=== PATIENT | male | born 1965 | race Caucasian/White ===

== ENCOUNTER 2023-03-26 07:58 | Day surgery (SDC) | payer BC ==
[2023-03-25 08:57] VITALS: BMI 28.7
[2023-03-26] MEDS: LACTATED RINGERS 1,000 ML IV SCH ×2 (08:04→09:15)
[2023-03-26 08:26] VITALS: TEMP 96.9
[2023-03-26] MEDS ORDERED: PROPOFOL 10 MG/ML 20 ML VIAL IV ONE (09:16)
--- NOTE | 2023-03-26 09:37 | P.PCN ---
Date of Procedure: 03/26/23 Procedure(s) Performed: BRIEF HISTORY: Patient is a 57-year-old pleasant white male scheduled for an elective colonoscopy as a part of screening for colon cancer. His father was diagnosed with colon cancer at age 80. PROCEDURE PERFORMED: Colonoscopy with snare polypectomy. PREOPERATIVE DIAGNOSIS: Screening for colon cancer and family history of colon cancer. IV sedation per Anesthesia. PROCEDURE: After informed consent was obtained, the patient, was brought into the endoscopy unit. IV sedation was administered by Anesthesia under continuous monitoring. Digital rectal examination was normal. Initially the Olympus CF-160 flexible video colonoscope was then inserted in the rectum, gradually advanced into the cecum without any difficulty. Careful examination was performed as the scope was gradually being withdrawn. Ileocecal valve and the appendiceal orifice were visualized and appeared normal. Prep was excellent. Mucosa of the cecum, ascending colon, appeared normal. In the transverse colon there was a 5 mm polyp that was removed by cholecystectomy. Scattered left sided diverticulosis seen. Rest of the transverse colon, descending colon, sigmoid colon, and rectum appeared normal. Retroflexion was performed in the rectum and no lesions were seen. The patient tolerated the procedure well. IMPRESSION: 5 mm transverse colon polyp status post cold snare polypectomy Scattered sigmoid diverticulosis RECOMMENDATIONS: Findings of this examination were discussed with the patient well as his family. He was advised to follow with the biopsy results. Recommend repeat screening colonoscopy in 5 years because of the family history of colon cancer..
[2023-03-26 09:52] VITALS: RESP 16
[2023-03-26 10:21] VITALS: BP 115/72; PULSE 50
== END 2023-03-26 10:37 | disposition home or self-care (01) ==
LOC: ORWHC2ENDO 07:58
PROVIDERS: ATTEND Internal Medicine Gastroenterology
DX: Z12.11 Encounter for screening for malignant neoplasm of colon (principal); D12.4 Benign neoplasm of descending colon; Z80.0 Family history of malignant neoplasm of digestive organs; Z79.899 Other long term (current) drug therapy
CPT/HCPCS: 45385; J2704; 88305

== ENCOUNTER → 2024-07-31 | Outpatient (CLI) | payer BC ==
[2024-07-31 15:00] LABS: HCT 48.4 % (39.6-50.0); HGB 16.2 g/dL (13.0-17.0); MCH 30.7 pg (27.0-32.0); MCHC 33.5 g/dL (32.0-37.0); MCV 91.8 FL (80.0-97.0); NRBC Per 100 WBC 0 X 10*3/uL (0.00-0.01); Platelet Count 210 X 10*3/uL (140-440); RBC 5.27 X 10*6/uL (4.40-5.60); RDW 13.2 % (11.5-14.5); WBC 5.41 X 10*3/uL (4.50-10.00)
== END | disposition home or self-care (01) ==
LOC: LABWHC1 08:29
PROVIDERS: ATTEND Surgery
DX: Z01.818 Encounter for other preprocedural examination (principal); K40.90 Unilateral inguinal hernia, without obstruction or gangrene, not specified as recurrent; R00.1 Bradycardia, unspecified
CPT/HCPCS: 36415; 85027; 86850; 86900; 86901; 93005

== ENCOUNTER 2024-08-10 06:22 | Day surgery (SDC) | payer BC ==
[2024-08-06 10:43] VITALS: BMI 30.1
[2024-08-10] MEDS ORDERED: MIDAZOLAM 2 MG/2 ML VIAL IV PRN (07:00)
[2024-08-10] MEDS: LACTATED RINGERS 1,000 ML IV SCH (07:03)
[2024-08-10] MEDS: ACETAMINOPHEN TAB 500 MG TAB PO PRN (07:03)
[2024-08-10] MEDS: SCOPOLAMINE 1 MG/72 HR PATCH TRANSDERM ONE (07:04)
[2024-08-10] MEDS: ONDANSETRON 4 MG/2 ML VIAL IVP ONE (07:04)
[2024-08-10] MEDS: DEXAMETHASONE SOD PHOSPHATE 4 MG/ML 1 ML VIAL IV ONE (07:04)
[2024-08-10] MEDS: HEPARIN SODIUM,PORCINE 5,000 UNIT/ML 1 ML VIAL SQ PRN (07:09)
[2024-08-10] MEDS: LACTATED RINGERS 1,000 ML IV ONE (07:12)
[2024-08-10] MEDS: TAMSULOSIN 0.4 MG CAP.ER.24H PO STA (07:27)
[2024-08-10] MEDS: ceFAZolin 2 GM in DEXTROSE 5% IN WATER 50 ML IVPB PRN (07:30)
[2024-08-10] MEDS ORDERED: GLYCOPYRROLATE 0.2 MG/ML 2 ML VIAL ONE (07:30)
[2024-08-10] MEDS ORDERED: LIDOCAINE 1% INJ 10MG/ML (20 ML MDV) ONE (07:30)
[2024-08-10] MEDS ORDERED: ROCURONIUM 10 MG/ML (5 ML VIAL) IV ONE (07:30)
[2024-08-10] MEDS ORDERED: SUCCINYLCHOLINE CHLORIDE 200 MG/10 ML VIAL IV ONE (07:30)
[2024-08-10] MEDS ORDERED: MIDAZOLAM 2 MG/2 ML VIAL ONE (07:30)
[2024-08-10] MEDS ORDERED: KETOROLAC 30 MG/ML 1 ML VIAL ONE (07:30)
[2024-08-10] MEDS ORDERED: NEOSTIGMINE 1 MG/ML 10 ML VIAL ONE (07:30)
[2024-08-10] MEDS ORDERED: fentaNYL (PF) 50 MCG/ML 2 ML AMP ONE (07:30)
[2024-08-10] MEDS ORDERED: PROPOFOL 10 MG/ML 20 ML VIAL IV ONE (07:30)
--- NOTE | 2024-08-10 07:31 | P.GSHP ---
History of Present Illness H&P Date: 08/10/24 Chief Complaint: Right inguinal hernia 58-year-old male presents for hernia repair. Patient was seen in the office 2 months ago. Patient with an enlarging bulge right groin. No history of previous hernia repairs. Non-smoker. Mild pain at times. Past Medical History Past Medical History: No Reported History History of Any Multi-Drug Resistant Organisms: None Reported Additional Past Surgical History / Comment(s): colonoscopy Past Anesthesia/Blood Transfusion Reactions: No Reported Reaction Smoking Status: Never smoker - Past Family History Father Family Medical History: Cancer Additional Family Medical History / Comment(s): colo rectal cancer Mother Family Medical History: Cancer Additional Family Medical History / Comment(s): esophageal cancer Brother(s) Family Medical History: Cancer Additional Family Medical History / Comment(s): brain tumour Medications and Allergies Home Medications Medication Instructions Recorded Confirmed Type No Known Home Medications 03/26/23 08/10/24 History Allergies Allergy/AdvReac Type Severity Reaction Status Date / Time No Known Allergies Allergy Verified 08/10/24 06:40 Surgical - Exam Vital Signs Temp Pulse Resp BP Pulse Ox 97.2 F L 57 L 16 168/81 98 08/10/24 06:44 08/10/24 06:44 08/10/24 06:44 08/10/24 06:44 08/10/24 06:44 Physical exam: General: Well-developed, well-nourished HEENT: Normocephalic, sclerae nonicteric Abdomen: Nontender, nondistended, reducible right inguinal hernia Extremities: No edema Neuro: Alert and oriented Assessment and Plan (1) Right inguinal hernia Narrative/Plan: 58-year-old male with right inguinal hernia. Will proceed with laparoscopic [place] assisted repair right inguinal hernia with mesh, possible open, possible bilateral. Risks of bleeding, infection, recurrence, chronic pain, bladder and bowel injury, numbness, conversion to an open procedure, scarring, and anesthesia related complications were discussed. The correlation between hernia recurrence, obesity and smoking were reviewed in detail. The patient understands and wishes to proceed. Current Visit: Yes Status: Acute Code(s): K40.90 - UNIL INGUINAL HERNIA, W/O OBST OR GANGR, NOT SPCF RECUR SNOMED Code(s): 278216026
[2024-08-10] MEDS: BUPIVACAINE (PF) 0.25% 30 ML VIAL SQ ONE ×2 (07:59)
--- NOTE | 2024-08-10 09:16 | P.OP ---
Date of Procedure: 08/10/24 Procedure(s) Performed: PREOPERATIVE DIAGNOSIS: Right inguinal hernia POSTOPERATIVE DIAGNOSIS: Right direct inguinal hernia PROCEDURE: Laparoscopic repair right direct inguinal hernia with mesh SURGEON: Dr. Hill ANESTHESIA: General EBL: 5 cc OPERATIVE PROCEDURE DETAILS: Patient was placed in the operating table in the supine position. The patient was placed under general anesthesia. The abdomen was prepped and draped in usual sterile fashion. A small curvilinear supraumbilical incision was made. The fascia was retracted anteriorly with [place] forceps. The Veress needle was inserted. The saline drop test was normal. Insufflation took place to 15 mmHg. An 8 mm trocar was placed into the peritoneal cavity. 2 additional 8 mm trochars were placed in the right upper quadrant and left upper quadrant under visualization. The robotic arms were then brought in and docked into place. The fenestrated bipolar was used in the left arm and the laparoscopic cedrick was utilized in the right arm. A 30Â° 8 mm scope was used in the up position. The peritoneal cavity was inspected. The patient had an obvious direct hernia on the right-hand side. No hernia on the left was seen. The peritoneum was incised in a horizontal fashion cephalad to the internal inguinal ring. Following that careful dissection of the preperitoneal space took place. This took place using both electrocautery, sharp dissection but primarily blunt dissection. Visualization of the pubic tubercle and Tom's ligament took place medially. Full dissection took place laterally as well. The hernia sac was fully dissected. There was no visible cord lipoma penetrating through the internal inguinal ring. Once we had adequate space the [id number] Progrip mesh was advanced into the preperitoneal space and flattened out appropriately to cover all potential hernia sites. The mesh was sutured medially to the folding edge of Otm's ligament. This was performed using a absorbable 3-0 V-Loc suture. The peritoneal defect was then closed using a absorbable 2-0 VLok suture. The hernia sac was incorporated into the peritoneal closure to help prevent future recurrence. The pneumoperitoneum was then evacuated. The skin of all 3 sites was closed using a 4-0 Monocryl stitch. Skin glue was then applied. TYPE OF MESH USED: 15 cm ProGrip LOCATION OF MESH: Preperitoneal FIXATION: Absorbable 3 OV lock PREOPERATIVE DISCUSSION ON SMOKING CESSASTION: Yes PREOPERATIVE DISCUSSION ON MORBID OBESITY: Yes PREOPERATIVE DISCUSSION ON APPROPRIATE USE OF NARCOTIC USE: Yes PREOPERATIVE EDUCATION: Multi Modal, Smoking Cessation and Weight Loss with BMI over 35. DISPOSITION: Stable to recovery room
[2024-08-10 09:21] VITALS: TEMP 96.9
[2024-08-10] MEDS: HYDROmorphone 0.5 MG/0.5 ML SYRINGE IVP PRN (09:40)
[2024-08-10 10:01] VITALS: RESP 16
[2024-08-10 11:02] VITALS: BP 117/78; PULSE 54
[2024-08-10] MEDS ORDERED: ACETAMINOPHEN TAB 325 MG TAB PO SCH (13:00)
[2024-08-10] MEDS ORDERED: IBUPROFEN 600 MG TAB PO SCH (17:00)
== END 2024-08-10 11:38 | disposition home or self-care (01) ==
LOC: OR 06:22
PROVIDERS: ATTEND Surgery
DX: K40.90 Unilateral inguinal hernia, without obstruction or gangrene, not specified as recurrent (principal)
CPT/HCPCS: 49650; S2900